=== PATIENT | male | born 1945 | race Caucasian/White ===

== ENCOUNTER → 2017-04-01 | Outpatient (CLI) | payer OTHER ==
[~2017-04-01] MED LIST: ASPI81TA21 PO; ATOR-22 PO; CRGSR/40 PO; DABI150C PO; LISI2.5T5 PO; VANC5CAP PO
--- NOTE | 2017-04-01 12:36 | DIAGNOSTIC IMAGING REPORT ---
HEAD CT NONCONTRAST CT DOSE: 788.63 mGycm HISTORY: MEMORY LOSS TECHNIQUE: Multiaxial CT images of the head were performed without the use of intravenous contrast. Automated exposure control was utilized for this study. A dose lowering technique was utilized adhering to the principles of ALARA. Comparison: None. Findings: The paranasal sinuses and mastoid air cells are clear. The calvarium and skull base are intact. There is no mass, hematoma, midline shift, acute infarct. White matter hypodensity is nonspecific but suggestive of microvascular ischemic change. The ventricles and sulci demonstrate mild age-related involutional changes. 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 Metallic density within the right external auditory canal likely represents a hearing aid device. Impression: No acute intracranial abnormality. Atrophy and microvascular ischemic changes. 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 Electronically signed by: Anthony Herrera M.D. 04/01/2017 12:34 PM Dictated Date/Time: 04/01/2017 12:25 PM
--- NOTE | 2017-04-03 12:22 | EEG Procedure Note ---
EEG Procedure Note Date of Service Apr 01, 2017. Start / End Times Start Time: 1:56pm End Time: 2:17pm Referring Physician Artemio Leon History This is a 71yr old male with memory loss and amnesia. EEG to evaluate for possible seizure etiology. Home Medication List Scheduled Aspirin Enteric Coated (Ecotrin Or Generic), 81 MG PO DAILY Atorvastatin (Lipitor), 20 MG PO DAILY Carvedilol (Coreg Cr), 40 MG PO QAM Dabigatran Etexilate Mesylate (Pradaxa), 300 MG PO DAILY Lisinopril (Lisinopril), 2.5 MG PO DAILY Vancomycin Hcl (Vancomycin), 125 MG PO QID Description This is a 21 electrode EEG with a single channel dedicated to limited EKG. The electrodes were placed in accordance with the International 10-20 system. At the start of the recording the patient was in reported altered mental status. No hyperventilation or photic stimulation was done secondary to mental status. Background was poorly organized with no well formed anterior to posterior gradient. Background was comprised of symmetric moderate amplitude, predominantly 4-5Hz, mixed delta and theta frequencies with rare intermixed alpha frequencies. There was no state changes or sleep transients. Interpretation This is an abnormal routine EEG secondary to moderate background disorganization and slowing. There was no electrographic seizures or epileptiform discharges. Clinical Correlation This EEG indicates moderate encephalopathy of nonspecific etiology.
== END | disposition home or self-care (01) ==
LOC: C.CTS 12:07
PROVIDERS: ATTEND Psychiatry & Neurology Neurology
DX: R41.3 Other amnesia (principal)